=== PATIENT | female | born 1995 | race Caucasian/White ===

== ENCOUNTER 2023-02-04 06:12 | Inpatient (IN) | payer OTHER, SELFPAY ==
[2023-02-04] VITALS (114 sets, daily range): BP systolic 79–134; BP diastolic 41–94; PULSE 70–125; RESP 18; TEMP 36.6–37.9; O2SAT 95–99; BMI 37.5
--- NOTE | 2023-02-04 06:44 | PM.IMHP ---
H&P: HPI History of Present Illness Date/Time: 02/04/23 06:44 Chief Complaint: induction of labor at term induction of labor at term Narrative: is a 27-year-old multiparous patient term for induction of labor has been uncomplicated. Her cervix is favorable. She is group B strep negative [facility] Family History Family History Father Hypertension Grandparent Hypertension Social History Social History Substance use: never Spiritual care concerns: No Meds Home Medications and Allergies Home Medications Medication Instructions Recorded Confirmed Type vit#24-iron amino acid 1 tablet PO DAILY 01/07/23 01/07/23 History chelat-folic acid 30 mg-975 mcg tablet Allergies Allergy/AdvReac Type Severity Reaction Status Date / Time No Known Allergies Allergy Verified 01/07/23 15:36 Exam Const: General: cooperative, healthy appearing and comfortable Nutritional Appearance: average body habitus Orientation/consciousness: oriented to person, oriented to place and oriented to time HENMT: Head: normal to inspection Resp: Effort & Inspection: normal respiratory effort Cardio: Rate: regular rate Rhythm: regular rhythm Heart sounds: S1 normal heart sound present and S2 normal heart sound present GI: Inspection: normal to inspection ( gravid soft uterus) Auscultation: normal bowel sounds : External Female Exam: normal external appearance Speculum Exam - Vagina: normal appearance of the vagina Speculum Exam - Cervix: normal appearance of the cervix ( cervix 2.5/50/2. Attempted a with no fluid. FHT is reassuring) Assessment and Plan Assessment and plan (1) Term : Code(s): Z34.90 - Encounter for supervision of normal , unspecified, unspecified trimester Status: Acute Plan medical induction of labor. Spontaneous vaginal delivery is expected.
[2023-02-04 07:05] LABS: Basophils Percent Auto 0.2 % (0.2-1.2); Eosinophils Absolute Auto 0.1 K/mm3 (0-0.3); Eosinophils Percent Auto 0.8 % (0-4.4); Hematocrit 34.2 % (37.0-47.0); Immature Granulocyte Absolute 0.07 K/mm3 (0.00-0.031); Immature Granulocyte Percent A 0.6 % (0-0.5); Lymphocytes Absolute Auto 2.52 K/mm3 (0.9-3.2); Mean Corpuscular HGB Conc 32.2 g/dl (32-36); Mean Corpuscular Hemoglobin 30.1 pg (26-34); Mean Corpuscular Volume 93.7 fl (80-100); Mean Platelet Volume 10.9 fl (7.4-10.4); Monocytes Absolute Auto 0.6 K/mm3 (0.1-0.6); Monocytes Percent Auto 5.6 % (2.6-8.5); Neutrophils Absolute Auto 8.1 K/mm3 (1.3-6.7); Neutrophils Percent Auto 70.8 % (45.5-73.1); Platelet Count Result 186 k/mm3 (150-375); Red Blood Count 3.65 M/mm3 (4.2-5.4); Red Cell Distribution Width 13.4 % (11.5-14.5); White Blood Count 11.5 K/mm3 (4.5-10.0)
[2023-02-04] MEDS: OXYTOCIN 30 UNITS/NS 500 ML 30 UNITS/500 ML BAG IV CONT (07:15)
[2023-02-04] MEDS: LACTATED RINGERS 1,000 ML 125 ML IV CONT (07:15)
--- NOTE | 2023-02-04 09:24 | WPDANESEPP ---
Anes - Eval Pre Procedure Procedure: Labor epidural Date/Time: 02/04/23 09:24 Surgeon: Tatiana Dobson Preop Diagnosis: Pain during labor Pre Op Diagnosis: Induction of Labor Patient Data Age: 27 Gender: F Height: Weight: Last Vital Signs Pulse 75 02/04/23 09:16 BP 121/81 02/04/23 09:16 Allergies Allergy/AdvReac Type Severity Reaction Status Date / Time No Known Allergies Allergy Verified 01/07/23 15:36 Home Medications Medication Instructions Recorded Confirmed Type vit#24-iron amino acid 1 tablet PO DAILY 01/07/23 01/07/23 History chelat-folic acid 30 mg-975 mcg tablet Laboratory Tests 02/04/23 02/04/23 06:59 07:00 WBC 11.5 H K/mm3 (4.5-10.0) RBC 3.65 L M/mm3 (4.2-5.4) Hgb 11.0 L g/dL (12.0-15.0) Hct 34.2 L % (37.0-47.0) MCV 93.7 fl (80-100) MCH 30.1 pg (26-34) MCHC 32.2 g/dl (32-36) RDW 13.4 % (11.5-14.5) Plt Count 186 k/mm3 (150-375) MPV 10.9 H fl (7.4-10.4) Immature Gran % (Auto) 0.6 H % (0-0.5) Neut % (Auto) 70.8 % (45.5-73.1) Lymph % (Auto) 22.0 % (18.3-44.2) Motley % (Auto) 5.6 % (2.6-8.5) Eos % (Auto) 0.8 % (0-4.4) Baso % (Auto) 0.2 % (0.2-1.2) Lymph # (Auto) 2.52 K/mm3 (0.9-3.2) Motley # (Auto) 0.6 K/mm3 (0.1-0.6) Eos # (Auto) 0.1 K/mm3 (0-0.3) Baso # (Auto) 0.0 K/mm3 (0.0-0.1) Abs Immat Gran (auto) 0.07 H K/mm3 (0.00-0.031) Absolute Neuts (auto) 8.1 H K/mm3 (1.3-6.7) Absolute Nucleated RBC 0.0 K/mm3 (0.0-0.012) Nucleated RBC % 0.0 % (0.0-0.2) RPR Pending Blood Type AB Positive Antibody Screen Negative Patient hx anesthesia problems: none Family hx anesthesia problems: none Results Review: All pre-operative results and documents have been reviewed as part of the pre-operative evaluation. [facility] Family History Family History Father Hypertension Grandparent Hypertension Social History Social History Substance use: never Spiritual care concerns: No Exam Day of Procedure 02/04/23 09:24 Patient weight: overweight Heart: regular rate and rhythm Lungs: clear to auscultation Airway: Mallampati scale class II Neurological: alert and oriented
--- NOTE | 2023-02-04 12:25 | PM.OBPNLAB ---
Pain Control Date/time seen: 02/04/23 12:25 Pain control: tolerating well and epidural Pelvic Exam Dilation (cm): 3 Effacement (%): 75 station: -1 Amniotic membrane status: Leaking
[2023-02-04 12:48] LABS: Rapid Plasma Reagin Non-Reactive (NonReactive)
--- NOTE | 2023-02-04 14:30 | PM.OBPRVD ---
OB - Delivery Note Procedure Delivery date: 02/04/23 Procedure: mil Induction method: AROM Delivery augmentation: Pitocin Delivery monitor: External FHT Route of delivery: Episiotomy description: None Laceration Description: None Specimen: No Quantitative Blood Loss (ml): 60 Anesthesia type: Epidural Disposition: Floor Baby Date of : 02/04/23 Time of : 14:22 Weeks of gestation at delivery: 39 presentation: vertex position: Right Occiput Anterior Placenta delivery description: Spontaneous Cord Vessel Description: 3 Vessels score one minute: 9 score five minutes: 9
[2023-02-04] MEDS: OXYTOCIN 30 UNITS/NS 500 ML 30 UNITS/500 ML BAG 125 UNITS IV CONT (14:55)
[2023-02-04] MEDS: ACETAMINOPHEN 325 MG TABLET 650 MG PO (18:40)
[2023-02-05 00:35] VITALS: BP 123/77; PULSE 92; RESP 14; TEMP 37.1; O2SAT 96
[2023-02-05 04:38] LABS: Hematocrit 31.7 % (37.0-47.0); Hemoglobin 10.3 g/dL (12.0-15.0)
--- NOTE | 2023-02-05 06:29 | PM.DS ---
DS: Admitting Diagnosis Discharge Date 02/05/2023 Admitting Diagnosis term DS: Discharge Diagnosis Discharge Diagnosis (1) Term : Code(s): Z34.90 - Encounter for supervision of normal , unspecified, unspecified trimester Status: Acute DS: Summary Hospital Course Reason for hospitalization: the patient was admitted for induction of labor Hospital Course: the patient underwent successful spontaneous vaginal delivery on 02/04/2023. Hospital course was unremarkable. She remained afebrile. She was up, voiding without difficulty, eating regular diet, ambulating, and general without complaints. Time Spent with Patient Time attestation: Total time spent providing and/or coordinating discharge services: Exam Const: General: cooperative, healthy appearing and comfortable Nutritional Appearance: average body habitus Orientation/consciousness: oriented to person, oriented to place and oriented to time HENMT: Head: normal to inspection Resp: Effort & Inspection: normal respiratory effort Cardio: Rate: regular rate Rhythm: regular rhythm Heart sounds: S1 normal heart sound present and S2 normal heart sound present GI: Inspection: normal to inspection DS: Data Data Completed and Pending Labs on day of discharge: Labs from last 24 hours 02/05/23 02/04/23 02/04/23 04:33 07:00 06:59 WBC 11.5 H RBC 3.65 L Hgb 10.3 L 11.0 L Hct 31.7 L 34.2 L MCV 93.7 MCH 30.1 MCHC 32.2 RDW 13.4 Plt Count 186 MPV 10.9 H Immature Gran % (Auto) 0.6 H Neut % (Auto) 70.8 Lymph % (Auto) 22.0 Bull[place] % (Auto) 5.6 Eos % (Auto) 0.8 Baso % (Auto) 0.2 Lymph # (Auto) 2.52 Bullitt # (Auto) 0.6 Eos # (Auto) 0.1 Baso # (Auto) 0.0 Abs Immat Gran (auto) 0.07 H Absolute Neuts (auto) 8.1 H Absolute Nucleated RBC 0.0 Nucleated RBC % 0.0 RPR Non-reactive Blood Type AB Positive Antibody Screen Negative Discharge Plan Discharge Attending physician on discharge: Luis Alberto Zamudio Discharging Clinician: Luis Alberto Zamudio Patient Disposition: Home, Self-Care Activity: may shower and no straining Diet: heart healthy Wound Care Instructions: follow printed instructions Patient Instructions: Antibiotic Form Stand Alone Forms: General Discharge Information Follow-up/Referrals: Luis Alberto Zamudio MD [Physician] - Discharge Medications: Continued Complete 30-975 mg-mcg Tablet 1 tablet PO DAILY Date of admission: 02/04/23 06:12 Primary Care Provider: UNKNOWN,DOCTOR Admitting Provider: Luis Alberto Zamudio Attending physician on admission: Luis Alberto Zamudio Condition: Stable
--- NOTE | 2023-02-05 06:31 | P.PNOB_ITS ---
OB - PN: Subj Subjective Date/time seen: 02/05/23 06:31 Patient comments: no complaints and pain well controlled baby status: doing well and nursing well OB - PN: Obj Data Labs 02/05/23 04:33 Labs: Laboratory Results - last 24 hr 02/04/23 02/04/23 02/05/23 06:59 07:00 04:33 WBC 11.5 H RBC 3.65 L Hgb 11.0 L 10.3 L Hct 34.2 L 31.7 L MCV 93.7 MCH 30.1 MCHC 32.2 RDW 13.4 Plt Count 186 MPV 10.9 H Immature Gran % (Auto) 0.6 H Neut % (Auto) 70.8 Lymph % (Auto) 22.0 Nicholas % (Auto) 5.6 Eos % (Auto) 0.8 Baso % (Auto) 0.2 Lymph # (Auto) 2.52 Nicholas # (Auto) 0.6 Eos # (Auto) 0.1 Baso # (Auto) 0.0 Abs Immat Gran (auto) 0.07 H Absolute Neuts (auto) 8.1 H Absolute Nucleated RBC 0.0 Nucleated RBC % 0.0 RPR Non-reactive Blood Type AB Positive Antibody Screen Negative OB - PN A/P Plan day: 1 Plan: routine care Time Spent With Patient Time: Total time spent is greater than 50% in coordination of care (as documented) at patient's floor/unit and/or counseling patient: Time with patient: less than 15 minutes Exam Const: General: cooperative, healthy appearing and comfortable Nutritional Appearance: average body habitus Orientation/consciousness: oriented to person, oriented to place and oriented to time HENMT: Head: normal to inspection Resp: Effort & Inspection: normal respiratory effort Cardio: Rate: regular rate Rhythm: regular rhythm Heart sounds: S1 normal heart sound present and S2 normal heart sound present GI: Inspection: normal to inspection
[2023-02-05 07:40] VITALS: BP 124/77; PULSE 99; RESP 16; TEMP 37.3; O2SAT 100
--- NOTE | 2023-02-05 08:33 | WPDANLDPN2 ---
Anes-Prog Note L&D Date/Time: 02/05/23 08:33 Comfortable throughout: labor and delivery Neuraxial method: epidural Epidural/Spinal procedure site: clean & non-tender Neuro status: Neuro function grossly intact. Cardiovascular status: normal Respiratory status: normal Airway patency: baseline Mental status: baseline Post-Op hydration status: normal Vital Signs: Last Vital Signs Temp 37.1 C 02/05/23 00:35 Pulse 92 02/05/23 00:35 Resp 14 02/05/23 00:35 BP 123/77 02/05/23 00:35 Pulse Ox 96 02/05/23 00:35 O2 Del Method Room Air 02/04/23 18:30 Pain score (VAS): 10 Post-procedural complaints: none Patient feedback: Patient satisfied with anesthetic care.
[2023-02-05] MEDS: MULTIVIT/MIN/PREN/FOL AC/IRON TABLET 1 TAB PO (08:49)
[2023-02-05] MEDS: DOCUSATE SODIUM 100 MG CAPSULE PO (08:50)
[2023-02-05] MEDS: ACETAMINOPHEN 325 MG TABLET 650 MG PO (08:50)
[2023-02-05 12:23] VITALS: BP 116/74; PULSE 83; RESP 16; TEMP 36.9; O2SAT 98
--- NOTE | 2023-02-05 13:21 | PC.NURSE ---
[id number] Introductions were made, then consulted with patient to assess needs related to . Mother led the conversation with her?plans to feed?her infant, the?experience so far and has infant at the breast. Infant is sleeping with the nipple resting at the tip of the lips and mother states infant just finished a feeding that started at 1015. Resources provided for inpatient and outpatient services with the feeding sheet, mom/baby guide and name written on the white board. Mother voiced understanding of information and encouraged to call out at the next . Reported to the primary RN. [id number] Consulted with patient after being called related to mother planning to latch her . Mother independently effectively latched her infant to the left breast using the cradle position. Education given to mother of how to visualize suck/swallow ratios and listen for drinking at the breast which infant demonstrated both. Infant was able to maintain latch without discomfort to mother. Nipple care reviewed with optimal latch and good positioning. Reminded parents to use good handwashing technique to prevent infection. Mother is feeding appropriately for growth of infant and understands stimulating to eat if needed. has had appropriate feedings in the last 24 hours meets the outcomes for weight, output and jaundice at this time. Mother states she is confident to continue effectively her at home, when to call for assistance and denies any additional assistance or education at this time. Reinforced understanding of milk production, transition of milk, signs of adequate intake, transition of stool, prevention/relief of engorgement, plugged ducts, mastitis, responsive watching for feeding cues, the different methods of stimulating infant to breastfeed 2-3 hours after the start of the last feeding, community resources and when to call a provider using the resource of the mom and baby guide. Mother voiced understanding of the education shared. Reported to the primary RN.
--- NOTE | 2023-02-05 16:30 | PC.NURSE ---
Patient to view the discharge video Mother & Baby Care, The First Two Weeks online. Patient was given the opportunity and encouraged to ask questions. Patient verbalized understanding of information shared and has been given the mother/baby guide for home reference.
[2023-02-06 10:20] VITALS: BP 127/89; PULSE 99; RESP 18; TEMP 37; O2SAT 100
== END 2023-02-05 17:25 | disposition home or self-care (01) | DRG 807 ==
LOC: ANHLDR 06:16 → ANHOB2 18:03
PROVIDERS: Admitting Provider Obstetrics & Gynecology; Visit Provider Obstetrics & Gynecology
DX: O80 Encounter for full-term uncomplicated delivery (principal); Z37.0 Single live birth; Z3A.40 40 weeks gestation of pregnancy; Z23 Encounter for immunization
CPT/HCPCS: 36415; 85014; 85018; 85025; 86592; 86850; 86900; 86901; A9270; J2590; J2795; J7120

== ENCOUNTER 2025-02-01 15:45 | Inpatient (IN) | payer OTHER, SELFPAY ==
[2025-02-01] VITALS (72 sets, daily range): BP systolic 105–151; BP diastolic 57–111; PULSE 69–102; RESP 14–16; TEMP 36.7–36.9; O2SAT 96–100; BMI 35.6
--- NOTE | 2025-02-01 15:45 | LDADM ---
This patient, Nitin Lindsey, was admitted to Labor/Delivery/Recovery 108 on 02/01/25 at 15:45. Plans for labor, pain management and were discussed with patient. Patient/family oriented to hospital policies and general routines including ID bracelet, bed and alarms, visiting hours, pain management, procedures, bathroom and other care routines, personal items, smoking policy, room service/diet and guest tray routines, security routines, and visiting hours. Patient/Family are encouraged to report perceived risks to care and to ask questions if they do not understand what they are told or what they should do. See OBIX for further documentation.
[2025-02-01] MEDS: LACTATED RINGERS 1,000 ML 125 ML IV CONT (16:10)
[2025-02-01 16:26] LABS: Hematocrit 34.6 % (37.0-47.0); Hemoglobin 11.5 g/dL (12.0-15.0); Immature Granulocyte Percent A 0.4 % (0-0.5); Lymphocytes Absolute Auto 1.91 K/mm3 (0.9-3.2); Mean Corpuscular HGB Conc 33.2 g/dl (32-36); Mean Corpuscular Hemoglobin 30.2 pg (26-34); Mean Corpuscular Volume 90.8 fl (80-100); Nucleated Red Blood Cells Absolute Auto 0.000 K/mm3 (0.0-0.012); Nucleated Red Blood Cells Perc 0.0 % (0.0-0.2); Platelet Count Result 172 k/mm3 (150-375); Red Blood Count 3.81 M/mm3 (4.2-5.4); White Blood Count 11.9 K/mm3 (4.5-10.0)
[2025-02-01 16:40] LABS: Alanine Aminotransferase 14 U/L (6-35); Albumin Level 3.4 g/dL (3.5-5.1); Alkaline Phosphatase 148 U/L (38-126); Anion Gap 7 mmol/L (4-12); Aspartate Amino Transferase 25 U/L (14-36); Bilirubin,Total 0.3 mg/dL (0.2-1.3); Blood Urea Nitrogen 10 mg/dL (7-17); Calcium 8.3 mg/dL (8.4-10.2); Carbon Dioxide 19 mmol/L (22-30); Chloride 108 mmol/L (98-107); Estimated CRCL calculation 103 ml/min; Estimated Glomerular Filt Rate > 60; Glucose 117 mg/dL (65-110); Potassium 3.9 mmol/L (3.4-5.0); Sodium 134 mmol/L (137-145); Total Protein 6.7 g/dL (6.3-8.2); Uric Acid 4.7 mg/dL (2.5-7.5)
--- NOTE | 2025-02-01 16:41 | P.PNAN_ITS ---
Anes - Eval Pre Procedure Procedure: labor epidural Date/Time: 02/01/25 16:41 Surgeon: james Preop Diagnosis: pain during labor Pre Op Diagnosis: labor Patient Data Age: 29 Gender: F Height: 1.57 m Weight: 88.5 kg Last Vital Signs Pulse 88 02/01/25 16:31 BP 126/89 02/01/25 16:31 O2 Del Method Room Air 02/01/25 16:30 Allergies Allergy/AdvReac Type Severity Reaction Status Date / Time No Known Allergies Allergy Verified 12/29/24 14:47 Home Medications ?Medication ?Instructions ?Recorded ?Confirmed ?Type vit 24-iron amino acid 1 tablet PO DAILY 12/1202/01/25 History chelat-folic acid 30 mg-975 mcg tablet Laboratory Tests 02/01/25 02/01/25 16:14 16:14 WBC 11.9 H K/mm3 (4.5-10.0) RBC 3.81 L M/mm3 (4.2-5.4) Hgb 11.5 L g/dL (12.0-15.0) Hct 34.6 L % (37.0-47.0) MCV 90.8 fl (80-100) MCH 30.2 pg (26-34) MCHC 33.2 g/dl (32-36) RDW 13.0 % (11.5-14.5) Plt Count 172 k/mm3 (150-375) MPV 11.7 H fl (7.4-10.4) Immature Gran % (Auto) 0.4 % (0-0.5) Neut % (Auto) 78.7 H % (45.5-73.1) Lymph % (Auto) 16.0 L % (18.3-44.2) Frederick % (Auto) 4.3 % (2.6-8.5) Eos % (Auto) 0.3 % (0-4.4) Baso % (Auto) 0.3 % (0.2-1.2) Lymph # (Auto) 1.91 K/mm3 (0.9-3.2) Frederick # (Auto) 0.5 K/mm3 (0.1-0.6) Eos # (Auto) 0.0 K/mm3 (0-0.3) Baso # (Auto) 0.0 K/mm3 (0.0-0.1) Abs Immat Gran (auto) 0.05 H K/mm3 (0.00-0.031) Absolute Neuts (auto) 9.4 H K/mm3 (1.3-6.7) Absolute Nucleated RBC 0.000 K/mm3 (0.0-0.012) Nucleated RBC % 0.0 % (0.0-0.2) Sodium 134 L mmol/L (137-145) Potassium 3.9 mmol/L (3.4-5.0) Chloride 108 H mmol/L (98-107) Carbon Dioxide 19 L mmol/L (22-30) Anion Gap 7 mmol/L (4-12) BUN 10 mg/dL (7-17) Creatinine 0.72 mg/dL (0.7-1.0) Estim Creat Clear Calc 103 ml/min Estimated GFR > 60 (59 - ) Glucose 117 H mg/dL (65-110) Uric Acid Cancelled 4.7 mg/dL (2.5-7.5) Calcium 8.3 L mg/dL (8.4-10.2) Total Bilirubin 0.3 mg/dL (0.2-1.3) AST 25 U/L (14-36) ALT 14 U/L (6-35) Alkaline Phosphatase 148 H U/L (38-126) Total Protein 6.7 g/dL (6.3-8.2) Albumin 3.4 L g/dL (3.5-5.1) Blood Type Pending Antibody Screen Pending Patient hx anesthesia problems: none Family hx anesthesia problems: none Results Review: All pre-operative results and documents have been reviewed as part of the pre- operative evaluation. [facility] Past Medical History Medical History (Updated 02/01/25 @ 16:42 by Rosina Torres CRNA) Obesity (BMI 30-39.9) Family History Family History Father Hypertension Grandparent Hypertension Social History Social History Smoking status: Never smoker Second hand tobacco smoke exposure: No Substance use: never Lack of Transportation: No Lack of Food: Never True Current Housing: I Have Housing Concerned About Future Housing: No Difficulty Paying Gas/Electric Bills: No Difficulty Paying for Meds: No Currently Unemployed: No Education: Bachelor's Degree Difficulty w/ Childcare or Family Care: No Spiritual care concerns: No Exam Day of Procedure 02/01/25 16:41
[2025-02-01 17:08] LABS: Syphilis IgG/IgM Antibody Non-Reactive (Nonreactive)
[2025-02-01] MEDS: OXYTOCIN 30 UNITS/NS 500 ML 30 UNITS/500 ML BAG 999 UNITS IV CONT (17:32)
--- NOTE | 2025-02-01 17:36 | WPDHPUPDATE1 ---
History and Physical Update Update Date/Time: 02/01/25 17:36 History and Physical has been reviewed, including an updated exam of the patient. There are NO changes in the patient's condition. Risks, benefits, and alternatives have been discussed and questions answered. Patient agrees to proceed with procedure.
--- NOTE | 2025-02-01 17:36 | PM.IMHP ---
H&P: HPI History of Present Illness Date/Time: 02/01/25 17:36 Chief Complaint: Term in labor Narrative: This is a 29-year-old multiparous patient at 447 weeks gestation in active labor. Her has been uncomplicated Review of Systems Review of Systems: All systems reviewed & are unremarkable except as noted in HPI and below PMFSH Past Medical History Medical History Obesity (BMI 30-39.9) Family History Family History Father Hypertension Grandparent Hypertension Social History Social History Smoking status: Never smoker Second hand tobacco smoke exposure: No Substance use: never Lack of Transportation: No Lack of Food: Never True Current Housing: I Have Housing Concerned About Future Housing: No Difficulty Paying Gas/Electric Bills: No Difficulty Paying for Meds: No Currently Unemployed: No Education: Bachelor's Degree Difficulty w/ Childcare or Family Care: No Spiritual care concerns: No Meds Home Medications and Allergies Home Medications ?Medication ?Instructions ?Recorded ?Confirmed ?Type vit 24-iron amino acid 1 tablet PO DAILY 01/07/23 02/01/25 History chelat-folic acid 30 mg-975 mcg tablet Allergies Allergy/AdvReac Type Severity Reaction Status Date / Time No Known Allergies Allergy Verified 12/29/24 14:47 Vital Signs Vital Signs - 24 hr 02/01/25 16:16 02/01/25 16:30 02/01/25 16:31 Pulse Rate 98 88 Blood Pressure 125/87 126/89 Pulse Oximetry Oxygen Delivery Room Air 02/01/25 16:45 02/01/25 16:47 02/01/25 16:49 Pulse Rate 82 84 77 Blood Pressure 143/85 H 136/87 127/85 Pulse Oximetry 100 Oxygen Delivery 02/01/25 16:50 02/01/25 16:51 02/01/25 16:53 Pulse Rate 84 83 Blood Pressure 129/80 123/77 Pulse Oximetry 99 Oxygen Delivery 02/01/25 16:55 02/01/25 16:56 02/01/25 16:57 Pulse Rate 101 H 73 Blood Pressure 151/87 H 127/68 Pulse Oximetry 100 Oxygen Delivery 02/01/25 16:59 02/01/25 17:00 02/01/25 17:01 Pulse Rate 82 76 Blood Pressure 115/72 126/73 Pulse Oximetry 99 Oxygen Delivery 02/01/25 17:03 02/01/25 17:05 02/01/25 17:07 Pulse Rate 85 89 77 Blood Pressure 118/75 110/62 129/81 Pulse Oximetry 98 Oxygen Delivery 02/01/25 17:10 02/01/25 17:11 02/01/25 17:13 Pulse Rate 94 79 85 Blood Pressure 112/73 129/87 105/87 Pulse Oximetry 100 Oxygen Delivery 02/01/25 17:15 02/01/25 17:17 02/01/25 17:19 Pulse Rate 72 85 89 Blood Pressure 115/66 132/88 148/71 H Pulse Oximetry 97 Oxygen Delivery 02/01/25 17:20 02/01/25 17:21 02/01/25 17:24 Pulse Rate 83 83 Blood Pressure 136/72 141/70 H Pulse Oximetry 100 Oxygen Delivery 02/01/25 17:25 02/01/25 17:30 02/01/25 17:31 Pulse Rate 87 Blood Pressure 131/57 L Pulse Oximetry 100 98 Oxygen Delivery 02/01/25 17:32 02/01/25 17:35 Pulse Rate 92 Blood Pressure 125/111 H Pulse Oximetry 98 Oxygen Delivery Exam Const: General: cooperative, healthy appearing and comfortable Nutritional Appearance: average body habitus Orientation/consciousness: oriented to person, oriented to place and oriented to time Resp: Effort & Inspection: normal respiratory effort Cardio: Rate: regular rate Rhythm: regular rhythm Heart sounds: S1 normal heart sound present and S2 normal heart sound present GI: Inspection: normal to inspection (Gravid soft uterus) : External Female Exam: normal external appearance Speculum Exam - Vagina: normal appearance of the vagina Speculum Exam - Cervix: normal appearance of the cervix (Cervix and admission 6cm with spontaneous rupture membranes. heart t) H&P: Results Labs Labs: Short CBC 02/01/25 Range/Units 16:14 WBC 11.9 H (4.5-10.0) K/mm3 Hgb 11.5 L (12.0-15.0) g/dL Hct 34.6 L (37.0-47.0) % Plt Count 172 (150-375) k/mm3 BMP 02/01/25 16:14 Sodium 134 L Potassium 3.9 Chloride 108 H Carbon Dioxide 19 L BUN 10 Creatinine 0.72 Glucose 117 H Calcium 8.3 L Liver Function 02/01/25 Range/Units 16:14 Total Bilirubin 0.3 (0.2-1.3) mg/dL AST 25 (14-36) U/L ALT 14 (6-35) U/L Alkaline Phosphatase 148 H (38-126) U/L Albumin 3.4 L (3.5-5.1) g/dL Assessment and Plan Assessment and plan (1) Term : Code(s): Z34.90 - Encounter for supervision of normal , unspecified, unspecified trimester Status: Acute Plan Spontaneous vaginal delivery is expected
--- NOTE | 2025-02-01 17:37 | PM.OBPRVD ---
OB - Vaginal Delivery Note Procedure Delivery date: 02/01/25 Delivery monitor: External FHT and External Uterine Route of delivery: Episiotomy description: None Laceration Description: None Specimen: No Quantitative Blood Loss (ml): 62 Anesthesia type: Epidural Disposition: Floor Complications: No immediate complications Narrative: Patient was admitted at term at 40 and 4 7th weeks gestation in active labor. She spontaneously ruptured membranes epidural anesthesia was placed as quickly as possible and she went to completely dilated she pushed delivered head spontaneously in the JHONY position. Anterior posterior shoulder delivered spontaneously. Cord clamped to cut infant passed off the table given Apgars of 9 [id number] 9 [id number]. Cord blood was drawn. Placenta delivered intact spontaneously. Twenty of Pitocin placed IV to help firm the uterus. No tears or lacerations were noted and blood loss was estimated 62cc. All sponge, needle, instrument counts were correct Baby Date of : 02/01/25 Time of : 17:26 Gestational Age by Date: 40 gender: Male presentation: vertex position: Left Occiput Anterior Placenta delivery description: Spontaneous Cord Vessel Description: 3 Vessels score one minute: 9 score five minutes: 9
--- NOTE | 2025-02-01 17:39 | P.DS_ITS ---
DS: Admitting Diagnosis Discharge Date 02/03/2025 Admitting Diagnosis Term DS: Discharge Diagnosis Discharge Diagnosis (1) Term : Code(s): Z34.90 - Encounter for supervision of normal , unspecified, unspecified trimester Status: Acute DS: Summary Hospital Course Reason for hospitalization: Patient was admitted in active labor and underwent spontaneous vaginal delivery on 02/02/2020. Hospital Course: Patient's hospital course unremarkable. She remained afebrile. She was up, voiding without difficulty, eating regular diet, ambulating, generally without complaints. Time Spent with Patient Time attestation: Total time spent providing and/or coordinating discharge services: Exam Const: General: cooperative, healthy appearing and comfortable Nutritional Appearance: average body habitus Orientation/consciousness: oriented to person, oriented to place and oriented to time Resp: Effort & Inspection: normal respiratory effort Cardio: Rate: regular rate Rhythm: regular rhythm Heart sounds: S1 normal heart sound present and S2 normal heart sound present GI: Inspection: normal to inspection (Gravid soft uterus) : External Female Exam: normal external appearance Speculum Exam - Vagina: normal appearance of the vagina Speculum Exam - Cervix: normal appearance of the cervix (Cervix and admission 6cm with spontaneous rupture membranes. heart t) DS: Data Data Completed and Pending Labs on day of discharge: Labs from last 24 hours 02/01/25 02/01/25 16:14 16:14 WBC 11.9 H RBC 3.81 L Hgb 11.5 L Hct 34.6 L MCV 90.8 MCH 30.2 MCHC 33.2 RDW 13.0 Plt Count 172 MPV 11.7 H Immature Gran % (Auto) 0.4 Neut % (Auto) 78.7 H Lymph % (Auto) 16.0 L [place] % (Auto) 4.3 Eos % (Auto) 0.3 Baso % (Auto) 0.3 Lymph # (Auto) 1.91 [place] # (Auto) 0.5 Eos # (Auto) 0.0 Baso # (Auto) 0.0 Abs Immat Gran (auto) 0.05 H Absolute Neuts (auto) 9.4 H Absolute Nucleated RBC 0.000 Nucleated RBC % 0.0 Sodium 134 L Potassium 3.9 Chloride 108 H Carbon Dioxide 19 L Anion Gap 7 BUN 10 Creatinine 0.72 Estim Creat Clear Calc 103 Estimated GFR > 60 Glucose 117 H Uric Acid 4.7 Cancelled Calcium 8.3 L Total Bilirubin 0.3 AST 25 ALT 14 Alkaline Phosphatase 148 H Total Protein 6.7 Albumin 3.4 L Syphilis IgG/IgM Ab Non-reactive Blood Type AB Positive Antibody Screen Negative Discharge Plan Discharge Attending physician on discharge: Luis Alberto Zamudio Discharging Clinician: Luis Alberto Zamudio Patient Disposition: Home Activity: may shower, no straining and pelvic rest Diet: heart healthy Wound Care Instructions: follow printed instructions Patient Instructions: Antibiotic Form Patient Language: Kyrgyz Stand Alone Forms: General Discharge Information Follow-up/Referrals: Luis Alberto Zamudio MD [Physician, [employer]] Discharge Medications: Continued PNV [id number] mg-mcg Tablet 1 tablet PO DAILY Date of admission: 02/01/25 15:45 Primary Care Provider: PHYSICIAN,APPLIANCE INSTALLER Admitting Provider: Luis Alberto Zamudio Attending physician on admission: Luis Alberto Zamudio Condition: Stable
[2025-02-01] MEDS: OXYTOCIN 30 UNITS/NS 500 ML 30 UNITS/500 ML BAG 125 UNITS IV CONT (18:08)
--- NOTE | 2025-02-01 20:13 | OBPPTRN ---
Patient transferred to post room #283 via wheelchair. Support person present. Oriented to unit, room, information board, rooming in, admission packet and security measures. Patient verbalizes understanding.
[2025-02-02 04:52] LABS: Hematocrit 32.8 % (37.0-47.0); Hemoglobin 10.7 g/dL (12.0-15.0)
[2025-02-02 07:20] VITALS: BP 113/76; PULSE 84; RESP 16; TEMP 37.1; O2SAT 98
--- NOTE | 2025-02-02 07:36 | PM.OBPNVD ---
OB - PN: Subj Subjective Date/time seen: 02/02/25 07:36 Patient comments: no complaints, pain well controlled and tolerating diet [place] baby status: doing well OB - PN: Obj Data Labs 02/02/25 03:36 02/01/25 16:14 Labs: Laboratory Results - last 24 hr 02/01/25 02/01/25 02/02/25 16:14 16:14 03:36 WBC 11.9 H RBC 3.81 L Hgb 11.5 L 10.7 L Hct 34.6 L 32.8 L MCV 90.8 MCH 30.2 MCHC 33.2 RDW 13.0 Plt Count 172 MPV 11.7 H Immature Gran % (Auto) 0.4 Neut % (Auto) 78.7 H Lymph % (Auto) 16.0 L [place] % (Auto) 4.3 Eos % (Auto) 0.3 Baso % (Auto) 0.3 Lymph # (Auto) 1.91 [place] # (Auto) 0.5 Eos # (Auto) 0.0 Baso # (Auto) 0.0 Abs Immat Gran (auto) 0.05 H Absolute Neuts (auto) 9.4 H Absolute Nucleated RBC 0.000 Nucleated RBC % 0.0 Sodium 134 L Potassium 3.9 Chloride 108 H Carbon Dioxide 19 L Anion Gap 7 BUN 10 Creatinine 0.72 Estim Creat Clear Calc 103 Estimated GFR > 60 Glucose 117 H Uric Acid Cancelled 4.7 Calcium 8.3 L Total Bilirubin 0.3 AST 25 ALT 14 Alkaline Phosphatase 148 H Total Protein 6.7 Albumin 3.4 L Syphilis IgG/IgM Ab Non-reactive Blood Type AB Positive Antibody Screen Negative OB - PN A/P Assessment and Plan (1) Term : Code(s): Z34.90 - Encounter for supervision of normal , unspecified, unspecified trimester Status: Acute Plan routine care Time Spent With Patient Time: Total time spent is greater than 50% in coordination of care (as documented) at patient's floor/unit and/or counseling patient: Review of Systems Review of Systems: All systems reviewed & are unremarkable except as noted in HPI and below Exam Const: General: cooperative, healthy appearing and comfortable Nutritional Appearance: average body habitus Orientation/consciousness: oriented to person, oriented to place and oriented to time Resp: Effort & Inspection: normal respiratory effort Cardio: Rate: regular rate Rhythm: regular rhythm Heart sounds: S1 normal heart sound present and S2 normal heart sound present GI: Inspection: normal to inspection (Gravid soft uterus) : External Female Exam: normal external appearance Speculum Exam - Vagina: normal appearance of the vagina Speculum Exam - Cervix: normal appearance of the cervix (Cervix and admission 6cm with spontaneous rupture membranes. heart t)
[2025-02-02] MEDS: IBUPROFEN 600 MG TABLET (08:47)
[2025-02-02] MEDS: MULTIVIT/MIN/PREN/FOL AC/IRON TABLET 1 TAB PO (08:47)
[2025-02-02] MEDS: DOCUSATE SODIUM 100 MG CAPSULE PO (08:48)
[2025-02-02 12:15] VITALS: BP 117/73; PULSE 72; RESP 16; TEMP 37.1; O2SAT 97
--- NOTE | 2025-02-02 14:05 | WPDANLDPN2 ---
Anes-Prog Note L&D Date/Time: 02/02/25 14:05 Comfortable throughout: labor and delivery Neuraxial method: epidural Epidural/Spinal procedure site: clean & non-tender Neuro status: Neuro function grossly intact. Cardiovascular status: normal Respiratory status: normal Airway patency: baseline Mental status: baseline Post-Op hydration status: normal Vital Signs: Last Vital Signs Temp 37.1 C 02/02/25 12:15 Pulse 72 02/02/25 12:15 Resp 16 02/02/25 12:15 BP 117/73 02/02/25 12:15 Pulse Ox 97 02/02/25 12:15 O2 Del Method Room Air 02/01/25 20:25 Pain score (VAS): 1/10 I/O: Intake & Output 02/01/25 02/02/25 02/02/25 23:59 07:59 15:59 Output Total 162 Balance -162 Post-procedural complaints: none Patient feedback: Patient satisfied with anesthetic care.
[2025-02-02 16:05] VITALS: BP 116/83; PULSE 72; RESP 16; TEMP 36.5; O2SAT 98
--- NOTE | 2025-02-02 16:05 | PC.NURSE ---
1530. Mother verbalizes she is able to independently latch infant with appropriate positioning and alignment. She denies any nipple discomfort and is responsively . is currently meeting outcomes for weight, output, jaundice, blood sugar and feeding frequencies of 8-12 times in 24 hours. Mother declines any additional assistance or education at this time. Mother is encouraged to call for assistance if her doesn?t latch, pain with latching, questions or concerns. Mother voiced understanding of information shared along with the mom/baby guide for an additional resource. Reported to the Primary RN.
[2025-02-02 19:35] VITALS: BP 121/80; PULSE 76; RESP 16; TEMP 36.3; O2SAT 99
--- NOTE | 2025-02-03 06:42 | P.PNOB_ITS ---
OB - PN: Subj Subjective Date/time seen: 02/03/25 06:42 Patient comments: no complaints, pain well controlled and tolerating diet [place] baby status: doing well OB - PN: Obj Data Labs 02/02/25 03:36 02/01/25 16:14 OB - PN A/P Assessment and Plan (1) Term : Code(s): Z34.90 - Encounter for supervision of normal , unspecified, unspecified trimester Status: Acute Plan Comments: home. followow up 6 weeks Time Spent With Patient Time: Total time spent is greater than 50% in coordination of care (as documented) at patient's floor/unit and/or counseling patient: Review of Systems 2 Review of Systems: All systems reviewed & are unremarkable except as noted in HPI and below Exam 2 Const: General: cooperative, healthy appearing and comfortable Nutritional Appearance: average body habitus Orientation/consciousness: oriented to person, oriented to place and oriented to time Resp: Effort & Inspection: normal respiratory effort Cardio: Rate: regular rate Rhythm: regular rhythm Heart sounds: S1 normal heart sound present and S2 normal heart sound present GI: Inspection: normal to inspection (Gravid soft uterus) : External Female Exam: normal external appearance Speculum Exam - Vagina: normal appearance of the vagina Speculum Exam - Cervix: normal appearance of the cervix (Cervix and admission 6cm with spontaneous rupture membranes. heart t)
[2025-02-03 07:30] VITALS: BP 124/87; PULSE 77; RESP 16; TEMP 36.7; O2SAT 100
[2025-02-03] MEDS: MULTIVIT/MIN/PREN/FOL AC/IRON TABLET 1 TAB PO (08:32)
--- NOTE | 2025-02-03 11:14 | PC.NURSE ---
On 02/03/25, the student, Carlee Johnston, provided care and completed [facility] documentation on this patient. I have reviewed the student's documentation and agree with the findings.
--- NOTE | 2025-02-03 12:53 | PC.NURSE ---
Patient viewed the discharge video Mother & Baby Care, The First Two Weeks. Patient was given the opportunity and encouraged to ask questions. Patient verbalized understanding of information shared and has been given the mother/baby guide for home reference.
[2025-02-04 15:40] VITALS: BP 140/88; PULSE 94; RESP 18; TEMP 36.9; O2SAT 99
== END 2025-02-03 13:19 | disposition home or self-care (01) | DRG 807 ==
LOC: ANHLDR 17:40 → ANHOB2 20:14
PROVIDERS: Admitting Provider Obstetrics & Gynecology; Visit Provider Obstetrics & Gynecology
DX: O80 Encounter for full-term uncomplicated delivery (principal); Z37.0 Single live birth; Z3A.40 40 weeks gestation of pregnancy
CPT/HCPCS: 36415; 80053; 84550; 85014; 85018; 85025; 86593; 86850; 86900; 86901; A9270; J2590; J2795; J7120